=== PATIENT | male | born 1935 | race Caucasian/White ===

== ENCOUNTER 2023-01-07 13:14 | Outpatient (CLI) | payer MEDICARE, SELFPAY ==
--- NOTE | ~2023-01-07 | PE_ITS ---
EXAMINATION: PET_PETPSMAST_PT DATE: 01/07/2023 16:10 INDICATION: Prostate cancer TECHNIQUE: 9.864 mCi of pipflufolastat F-18 (18-F-DCFPyL) was administered i.v. Low dose computed to mography (CT) images were acquired from the base of the brain to the base of the brain to the proxima l thighs for attenuation correction and anatomic localization. Positron emission tomography (PET) jeovany ges were acquired in the same distribution beginning 126 minutes after injection. Images including fu sed PET/CT images were reconstructed in axial, coronal, and sagittal planes. Automated exposure contr ol technique was employed. The dose-length product was 723.60mGy-cm. COMPARISON: None FINDINGS: Head/neck: Typical pattern of symmetric physiologic increased activity in the lacrimal, parotid and submandibula r glands as well as along the mucosa of the nasal and oral cavities, the gerard-, naso- and hypopharynx, the glottis and esophagus. No pathologically enlarged cervical lymphadenopathy or suspicious foci of increased uptake in the visualized head or neck. Chest: There are several pulmonary nodules in the bilateral lower lungs, the largest measuring 2.1 cm at the anterobasilar segment of the right lower lobe with 3 additional nodules measuring 1.5-1.8 cm in the right lower lobe. The largest on the left are 1.6 similar nodule at the lingula and 1.3 cm nodule in the left lower lobe. These are suspicious for metastatic disease but are without significant PSMA upt ankit to suggest prostate cancer. Mild pulmonary edema at the lung bases. No pleural effusion. Heart si ze is normal atherosclerotic coronary artery calcific lesions. No pericardial or pleural effusion. Mi ld activity with maximal SUV of 2.8 associated with a normal sized left axillary lymph node which bebeto sures 6 mm in short axis diameter. No pathologically enlarged or normally PSMA avid thoracic lymphade nopathy. Tiny focus of mild activity with maximal SUV of 2.2 associated with the lateral right fifth rib which is without evident correlate on the CT imaging. Abdomen/pelvis/proximal thighs: Physiologic renal accumulation and excretion of activity in the kidneys, bladder and along portions o f ureters. There is a large photopenic filling defect in the bladder corresponding to an approximatel y 6 x 4 cm soft tissue density mass. It is unclear this represents an intraluminal mass arising from the bladder wall or mass effect upon the base of the bladder from the enlarged prostate. There are co uple small foci of increased uptake in the prostate, the most intense measuring approximately 1.5 cm with maximal SUV of 36.3 consistent with primary prostate cancer located at the right side of the pro state. There is a similar sized but significantly less intense focus at the anterior midline of the p rostate with maximal SUV of 4.3 which could represent a second independent focus of malignancy. 2.2 c m exophytic cyst arising from the posterior medial lower pole the right kidney. Normal degree and sli ghtly heterogenous pattern of increased uptake throughout the liver and spleen without radiologic cor relate or dominant PSMA avid lesion. The gallbladder, pancreas and bilateral adrenal glands are vidya l. Moderate uptake scattered throughout the bowels with typical duodenal and proximal jejunal predomi nance and without radiologic correlate, also likely physiologic. A portion of the cecum extends into a moderate-sized right inguinal hernia. No bowel obstruction. There are multiple diverticula along th e sigmoid colon without adjacent from trace stranding to suggest diverticulitis. No other abnormal fo ci of increased uptake or pathologically enlarged lymphadenopathy in the abdomen, pelvis or proximal thighs. Musculoskeletal: Mild lumbar levoscoliosis with anterior fusion at L5-S1. Moderate spondylosis in the more cephalad margret mbar and lower thoracic spine with bridging osteophytes at multiple consistent with
== END 2023-01-07 13:15 | disposition home or self-care (01) ==
PROVIDERS: PCP Internal Medicine; Visit Provider Urology
DX: C61 Malignant neoplasm of prostate (principal); R91.8 Other nonspecific abnormal finding of lung field
CPT/HCPCS: 78815; A9595

== ENCOUNTER 2023-02-22 12:55 | Outpatient (CLI) | payer MEDICARE, SELFPAY ==
--- NOTE | ~2023-02-22 | CT_ITS ---
EXAMINATION:CT diagnostic chest wo con DATE: 02/22/2023 13:16 INDICATION: Prostate cancer. TECHNIQUE: Computed tomography (CT) of the chest was performed without intravenous contrast. Automate d exposure control and iterative reconstruction technique were employed. The dose-length product (DLP ) was 556.53 mGy-cm. COMPARISON: PET/CT 01/07/2023 FINDINGS: There is mild scarring at the lung apices. There is a 12 mm nodule in right middle lobe, im proved from 21 mm on 01/07/2023. There is a 9 mm nodule in right lower lobe, improved from 15 mm. A fe w other pulmonary nodules are similarly improved. There is mild atelectasis bilaterally. No pleural e ffusion. The heart size is normal. There are coronary artery calcifications. No pericardial effusion. There is a 16 mm mass containing fat in left adrenal gland, consistent with a myelolipoma. There are bridging endplate osteophytes at multiple levels in the spine, consistent with diffuse idiopathic sk eletal hyperostosis (DISH). There is kyphosis of thoracic spine. IMPRESSION: 1. Pulmonary nodules with interval improvement, consistent with infection versus metastatic disease ( if the patient has received treatment to explain the decrease in size). Reviewed, dictated and finalized at location E. IMPRESSION: 1. Pulmonary nodules with interval improvement, consistent with infection versu s metastatic disease (if the patient has received treatment to explain the decr ease in size).
== END 2023-02-22 12:56 | disposition home or self-care (01) ==
PROVIDERS: PCP Internal Medicine; Visit Provider Urology
DX: C61 Malignant neoplasm of prostate (principal); R91.8 Other nonspecific abnormal finding of lung field
CPT/HCPCS: 71250

== ENCOUNTER 2024-03-07 13:19 | Outpatient (CLI) | payer MEDICARE, SELFPAY ==
--- NOTE | ~2024-03-07 | CT_ITS ---
EXAMINATION: CT chest abdomen pelvis w con DATE: 03/07/2024 14:05 INDICATION: Prostate cancer. TECHNIQUE: Computed tomography (CT) of the chest, abdomen, and pelvis was performed with 100 mL Omnip aque 350 intravenous contrast. Automated exposure control and iterative reconstruction technique were employed. The dose-length product was 1084.39 mGy-cm. COMPARISON: Chest CT 02/22/2023, PET/CT 01/07/2023 FINDINGS: CHEST CT: There is mild scarring at the lung apices. There is mild atelectasis bilaterally. There is mild bronc hiectasis in the inferior lungs. No pleural effusion. The heart size is normal. No pericardial effusi on. There is thoracic kyphosis. There are bridging endplate osteophytes at multiple levels in the spi ne, consistent with diffuse idiopathic skeletal hyperostosis (DISH). ABDOMEN/PELVIS CT: The liver, gallbladder, spleen, pancreas, and right adrenal gland are normal. There is a 1.0 cm mass containing fat in the left adrenal gland, consistent with a myelolipoma. There is cortical thinning o f the kidneys. There is a 2.6 cm cyst in right kidney. The prostate is severely enlarged. There is di ffuse bladder wall thickening, likely secondary to chronic outlet obstruction. There is diverticulosi s of the colon without evidence of diverticulitis. The appendix is not visualized. There is a right i nguinal hernia containing a wall of the cecum. There is calcified atherosclerosis of the aorta and ma ny of the other arteries. There are no pathologically enlarged lymph nodes. There is no free intraper itoneal fluid. There is moderate lumbar spondylosis. IMPRESSION: 1. Severely enlarged prostate. No evidence of metastatic disease. 2. Right inguinal hernia containing a wall of the cecum. Reviewed, dictated and finalized at location A.
[2024-03-07 13:49] LABS: Estimated Glomerular Filt Rate 57
== END 2024-03-07 13:20 | disposition home or self-care (01) ==
PROVIDERS: PCP Internal Medicine; Visit Provider Urology
DX: C61 Malignant neoplasm of prostate (principal); K40.90 Unilateral inguinal hernia, without obstruction or gangrene, not specified as recurrent
CPT/HCPCS: 71260; 74177; Q9967

== ENCOUNTER 2024-03-22 07:21 | Outpatient (CLI) | payer MEDICARE, SELFPAY ==
--- NOTE | ~2024-03-22 | NM_ITS ---
EXAMINATION: NM bone scan whole body DATE: 03/22/2024 11:45 INDICATION: Prostate cancer TECHNIQUE: 25.7 mCi Tc-99m HDP was administered intravenously. Delayed whole-body scintigrams were o btained. COMPARISON: CT dated 03/07/2024 FINDINGS: Likely degenerative joint centered uptake at the bilateral carpi, bilateral ankles and a few joints a t the bilateral feet, left acromioclavicular joint as well as at the right sternoclavicular joint. Mi ld lumbar levocurvature with increased uptake associated with facet osteoarthritis and several bridgi ng osteophytes at multiple levels consistent with diffuse idiopathic skeletal hyperostosis (DISH). No other atypical foci of suspicious bone uptake to suggest metastatic disease. IMPRESSION: 1. Scattered foci of likely degenerative joint centered uptake as detailed above. No lesion suspiciou s for metastatic disease. Reviewed, dictated and finalized at location A. IMPRESSION: 1. Scattered foci of likely degenerative joint centered uptake as detailed abov e. No lesion suspicious for metastatic disease.
== END 2024-03-22 07:22 | disposition home or self-care (01) ==
PROVIDERS: PCP Internal Medicine; Visit Provider Urology
DX: C61 Malignant neoplasm of prostate (principal)
CPT/HCPCS: 78306; A9503

== ENCOUNTER 2025-04-29 13:04 | Outpatient (CLI) | payer MEDICARE, SELFPAY ==
--- NOTE | ~2025-04-29 | US_ITS ---
EXAMINATION:Ultrasound, retroperitoneum complete: DATE: 04/29/2025 INDICATION: Chronic kidney disease, stage III. History of prostate cancer. TECHNIQUE: Ultrasound examination was performed of the kidneys and bladder as per protocol. COMPARISON: CT, chest abdomen pelvis dated 03/07/2024. FINDINGS: Normal size right kidney measuring the length of 10.5 cm with prominent pelvicalyceal system suggestive of hydronephrosis on the right side. 2 cm cyst of the lower pole of the right kidney similar to CT examination. Distended urinary bladder with prominent trabecular markings of the bladder due to chronic bladder outlet obstruction. Severely enlarged prostate gland with prominent median lobe. Postvoid examination was not performed. Left kidney is atrophic in size measuring the length of 8 cm. Prominent pelvicalyceal system of left kidney also suggests moderate hydronephrosis. IMPRESSION: 1. Severely enlarged prostate gland with prominent median lobe. Significantly prominent trabecular markings of the urinary bladder consistent with chronic bladder outlet obstruction. 2. Hydronephrotic changes of both kidneys and the bladder was fully distended. Hydronephrosis resolved after the catheterization of the bladder. 3. Mildly atrophic size of left kidney. Increase echotexture of renal cortex on both sides consistent with chronic medical renal changes. 4. Stable 2 cm cyst in the lower pole of right kidney. Reviewed, dictated and finalized at location T. 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 Severely enlarged prostate gland with prominent median lobe. Significantly p rominent trabecular markings of the urinary bladder consistent with chronic martha dder outlet obstruction. 2. Hydronephrotic changes of both kidneys and the bladder was fully distended. Hydronephrosis resolved after the catheterization of the bladder. 3. Mildly atrophic size of left kidney. Increase echotexture of renal cortex on both sides consistent with chronic medical renal changes. 4. Stable 2 cm cyst in the lower pole of right kidney.
== END 2025-04-29 13:05 | disposition home or self-care (01) ==
PROVIDERS: PCP Internal Medicine; Visit Provider Specialist
DX: N18.30 Chronic kidney disease, stage 3 unspecified (principal); N40.0 Benign prostatic hyperplasia without lower urinary tract symptoms; N26.1 Atrophy of kidney (terminal); N28.1 Cyst of kidney, acquired; Z85.46 Personal history of malignant neoplasm of prostate
CPT/HCPCS: 76770